=== PATIENT | female | born 1995 | race Caucasian/White ===

== ENCOUNTER 2018-07-29 11:32 | Emergency (ER) | payer OTHER, SELFPAY ==
[2018-07-29 11:37] VITALS: BP 114/75; PULSE 80; RESP 15; TEMP 36.8; O2SAT 99; BMI 30.3
--- NOTE | 2018-07-29 12:05 | ED.ABDPAIN ---
HPI - Abdominal Pain <ROMINA Carlos - Last Filed: 07/29/18 21:47> General Chief Complaint: Abdominal Pain Stated Complaint: 10wks and has constipation Time Seen by Provider: 07/29/18 12:05 Source: patient Mode of arrival: ambulatory Limitations: no limitations History of Present Illness HPI narrative: 23-year-old healthy female that is a nonsmoker here for complaint of constipation over the past week. She reports her last bowel movement was approximately 8 days ago. She states that she has pain into the anal rectal area as she is having hard time passing hard stool. She has been using a laxative prescribed to her by her primary care provider which has not been helping. She has also use glycerin suppositories. She denies any urinary symptoms. No fevers no chills. She denies any vaginal discharge or bleeding. she denies having abdominal pain over she does have discomfort secondary to bloating. She is 7 para 1. positive p.o. intake MD complaint: other Related Data Home Medications Medication Instructions Recorded Confirmed ondansetron 8 mg PO TID PRN 07/29/18 07/29/18 Previous Rx's Medication Instructions Recorded magnesium citrate 296 ml PO NOW #296 ml 07/29/18 mineral oil 118 ml MT NOW #135 ml 07/29/18 Review of Systems <ROMINA Carlos - Last Filed: 07/29/18 21:47> Constitutional Denies chills, Denies fever(s), Denies lethargy and Denies weakness Eyes Denies change in vision, Denies eye discharge, Denies irritation and Denies loss of vision ENT Ears, Nose, Mouth, and Throat: Denies change in voice, Denies neck pain and Denies sore throat Cardiovascular Denies chest pain, Denies irregular heart rhythm, Denies lightheadedness, Denies palpitations, Denies dyspnea, Denies dyspnea on exertion and Denies orthopnea Respiratory Denies cough, Denies dyspnea, Denies dyspnea on exertion and Denies wheezing Gastrointestinal Gastrointestinal: Reports constipation Genitourinary Denies hematuria, Denies flank pain, Denies urinary incontinence and Denies urinary urgency Musculoskeletal Denies neck pain Integumentary/Breasts Denies pruritus, Denies erythema, Denies rash and Denies wounds Neurologic Denies confusion, Denies loss of vision and Denies weakness Psychiatric Denies anxiety, Denies confusion, Denies depression, Denies homicidal ideation and Denies suicidal ideation Endocrine Denies palpitations Hematologic/Lymphatic Denies easy bruising Allergic/Immunologic Denies wheezing Exam <ROMINA Carlos - Last Filed: 07/29/18 21:47> Initial Vital Signs Initial Vital Signs: Vital Signs Temperature 98.3 F 07/29/18 11:37 Pulse Rate 80 07/29/18 11:37 Respiratory Rate 15 07/29/18 11:37 Blood Pressure 114/75 07/29/18 11:37 Pulse Oximetry 99 07/29/18 11:37 Const General: cooperative and well developed Nutritional Appearance: well nourished Orientation: alert, awake, oriented x3 and not confused HENMT Mouth: oral mucosae normal and moist mucous membranes Eyes Conjunctivae: conjunctivae normal Sclera: sclerae normal Pupils: PERRL EOM: EOM intact bilaterally Resp Effort & Inspection: normal respiratory effort, able to speak in complete sentences, no respiratory distress and no use of accessory muscles Auscultation: clear to auscultation bilaterally, no rales, no rhonchi and no wheezes Cardio Rate: regular rate Rhythm: regular rhythm Heart Sounds: no click, no gallops, no murmurs and no rubs GI Inspection: non-distended Palpation: soft, no hepatosplenomegaly, No guarding, No pulsatile mass and No tender Auscultation: normal bowel sounds Rectal Exam: visual inspection normal, normal sphincter tone and fecal impaction General: No CVA tenderness Skin General: no rashes or lesions noted, No jaundice and No petechiae Neuro General: alert, oriented x3, gait normal and no focal motor deficits Speech: speech normal <Wilfredo Albright DO - Last Filed: 08/02/18 07:12> Initial Vital Signs Initial Vital Signs: Vital Signs Temperature 98.3 F 07/29/18 11:37 Pulse Rate 80 07/29/18 11:37 Respiratory Rate 15 07/29/18 11:37 Blood Pressure 114/75 07/29/18 11:37 Pulse Oximetry 99 07/29/18 11:37 Course <ROMINA Carlos - Last Filed: 07/29/18 21:47> Vital Signs - 8 hr 07/29/18 14:20 Pulse Rate 84 Respiratory Rate 18 Blood Pressure 114/73 Pulse Oximetry 100 <Wilfredo Albright DO - Last Filed: 08/02/18 07:12> Vital Signs - 8 hr 07/29/18 14:20 Pulse Rate 84 Respiratory Rate 18 Blood Pressure 114/73 Pulse Oximetry 100 MDM - Abdominal Pain <ROMINA Carlos - Last Filed: 07/29/18 21:47> Lab Data Point of care testing: Urine Dip Bedside Urine Glucose Negative Bedside Urine Bilirubin - Negative Bedside Urine Ketone - Negative Urine Specific [place] 1.010 Bedside Urine Occult Blood - Negative Bedside Urine pH 7.0 Bedside Urine Protein - Negative Bedside Urine Urobilinogen - Negative Bedside Urine Nitrite - Negative Bedside Urine Leukocytes - Negative Esterase MDM Narrative Medical decision making narrative: Fecal impaction was appreciated on exam. Surgical lube enema was given and then fecal disimpaction was completed. she was able to have a small bowel movement after the fecal impaction. Patient would like to try a enema at home. She is prescribed a mineral oil enema. She is prescribed Mag citrate. She is encouraged to drink plenty of fluids. And plenty of fiber. Follow up with primary care provider in the next couple days for re-evaluation. For any worsening symptoms return to the emergency room. POC urine was negative for signs of urinary tract infection. <Wilfredo Albright DO - Last Filed: 08/02/18 07:12> Lab Data Point of care testing: Urine Dip Bedside Urine Glucose Negative Bedside Urine Bilirubin - Negative Bedside Urine Ketone - Negative Urine Specific [place] 1.010 Bedside Urine Occult Blood - Negative Bedside Urine pH 7.0 Bedside Urine Protein - Negative Bedside Urine Urobilinogen - Negative Bedside Urine Nitrite - Negative Bedside Urine Leukocytes - Negative Esterase Discharge Plan Departure Patient Disposition: Home Clinical Impression: Constipation Discharge Date/Time: 07/29/18 14:20 Interventions: ED Discharge Assessment Last Done: 07/29/18 14:20 Instructions: DI for Constipation Activity Restrictions/Additional Instructions: to help with the constipation you are prescribed a mineral oil enema along with magnesium citrate use as directed. Plenty of fluids. Plenty of fiber follow up with primary care provider in the next couple days for re-evaluation. For any worsening symptoms return to the emergency room. Prescriptions: New mineral oil enema 118 ml MT NOW Qty: 135 RF: 0 magnesium citrate solution 296 ml PO NOW Qty: 296 RF: 0 No Action ondansetron 8 mg tablet,disintegrating 8 mg PO TID PRN (Reason: Nausea) RF: 0 Referrals: [facility] [Provider Group] <Wilfredo Albright DO - Last Filed: 08/02/18 07:12> Cosign ED Attending Roderick Attestation: I was available for consultation during this patient's emergency department encounter
[2018-07-29 14:20] VITALS: BP 114/73; PULSE 84; RESP 18; O2SAT 100
== END 2018-07-29 14:20 | disposition home or self-care (01) ==
PROVIDERS: Emergency Provider Nurse Practitioner Family
DX: M54.5 Low back pain (principal)
CPT/HCPCS: 81003; 99283

== ENCOUNTER → 2020-03-03 07:56 | Outpatient (CLI) | payer OTHER, SELFPAY ==
--- NOTE | 2020-03-03 07:57 | DI.US.S_ITS ---
LIMITED ULTRASOUND OF RIGHT BREAST: 03/03/2020 CLINICAL: Palpable right breast lump. Baseline ultrasound. No prior exams were available for comparison. Real-time ultrasound of the right breast 12 o'clock region was performed. Dimas scale images of the real-time examination were reviewed. Patient last breast feed about 7 months ago. Reports no change in the palpable abnormality. No significant abnormalities were seen sonographically in the right breast in the region of the palpable abnormality. There is a ridge of fibroglandular tissue. IMPRESSION: NEGATIVE There is no sonographic evidence of malignancy in the region of palpable abnormality. Return to annual mammogram screening schedule is recommended. Patient was advised to monitor the area for significant change. This exam was interpreted at Station ID: [id number]. Electronically Signed By: Adonis Marie M.D. [facility] [place]/:03/03/2020 09:00:32 letter sent: Normal Exam Ultrasound BI-RADS: 1 Negative
== END ==
PROVIDERS: PCP Family Medicine
DX: N63.15 Unspecified lump in the right breast, overlapping quadrants (principal)
CPT/HCPCS: 76642

== ENCOUNTER 2020-10-27 13:00 | Emergency (ER) | payer OTHER, SELFPAY ==
[2020-10-27 13:00] VITALS: BP 143/68; PULSE 69; RESP 14; TEMP 36.3; O2SAT 100; BMI 32.5
[2020-10-27] MEDS: TET,DIPH,PERTUSS(ACELL),VAC/PF 0.5 ML SYRINGE IM (13:19)
[2020-10-27] MEDS: BACITRACIN OINT 0.9 GM PCKT 1 APPLIC TOP (13:20)
[2020-10-27] MEDS: LIDO 1%/SOD BICARB 8.4% (10ML) 10 ML SYRINGE INJ (13:20)
[2020-10-27] MEDS: ONDANSETRON 4 MG ODT SL (13:27)
--- NOTE | 2020-10-27 13:46 | ED_ITS ---
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 patient is unsure of last tetanus immunization. Right dominant hand. Patient reports intact sensation and is able to move her fingers. Related Data Allergies Allergy/AdvReac Type Severity Reaction Status Date / Time No Known Drug Allergies Allergy Verified 10/27/20 13:09 Review of Systems <ROMINA Salmeron - Last Filed: 10/27/20 14:14> Review of Systems Narrative: General: Denies fever, chills, fatigue, malaise, sweats. Respiratory: Denies dyspnea, cough, wheezing, hemoptysis, sputum. Cardiovascular: Denies chest pain, palpitations, orthopnea, edema. Gastrointestinal: Denies nausea, vomiting, abdominal pain, diarrhea, constipation, melena. Musculoskeletal: Denies weakness, joint pain or bony pain. Skin: See HPI Patient History <ROMINA Salmeron - Last Filed: 10/27/20 14:14> Social History Smoking Status: Former smoker Smoking Status: Former smoker alcohol intake frequency: holidays/special occasions only Substance Use Type: does not use Exam <ROMINA Salmeron - Last Filed: 10/27/20 14:14> Narrative Exam Narrative: General appearance: well developed, well nourished, in no acute distress. Head: normocephalic, atraumatic, no scalp lesions, non-tender. ENT: Hearing grossly intact. Airway patent. Neck/Thyroid: neck supple, full range of motion, no visible masses or meningeal signs. No JVD, non-tender without lymphadenopathy. Skin: 2 cm transverse linear laceration on left long finger in the middle of finger pad. Warm and dry and appropriate color for ethnicity. Heart: no clubbing, no cyanosis, no edema. Lungs: Breathing even and unlabored. No stridor. No accessory muscles used. Able to speak in full sentences. Chest: normal shape and expansion. Abdomen: non-obese, non-distended. Neurologic: alert and oriented. 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 Psych: good eye contact, normal affect. Initial Vital Signs Initial Vital Signs: Vital Signs Temperature 97.4 F L 10/27/20 13:00 Pulse Rate 69 10/27/20 13:00 Respiratory Rate 14 10/27/20 13:00 Blood Pressure 143/68 H 10/27/20 13:00 Pulse Oximetry 100 10/27/20 13:00 <Irais Garcia DO - Last Filed: 10/27/20 17:39> Initial Vital Signs Initial Vital Signs: Vital Signs Temperature 97.4 F L 10/27/20 13:00 Pulse Rate 69 10/27/20 13:00 Respiratory Rate 14 10/27/20 13:00 Blood Pressure 143/68 H 10/27/20 13:00 Pulse Oximetry 100 10/27/20 13:00 Procedures <ROMINA Salmeron - Last Filed: 10/27/20 14:14> Laceration Repair Laceration 1: Site: hand (long finger distal finger pad transverse) Side (If applicable): left Size (cm): 2 Description: linear Depth: simple, single layer Local Anesthetic: lidocaine 1% and with bicarb Amount of anesthesia used (mL): 2 Pre-repair: wound explored and irrigated extensively Skin layer closed with: nylon Size (cm): 4-0 Number of sutures: 3 Technique: simple, interrupted Orthopedic Splinting/Casting Injury #1: Side: left Upper Extremity Injury Location: finger Upper Extremity Immobilizer: aluminum form splint Additional Comments: sending a splint home with instruction on how to use. Scores <ROMINA Salmeron - Last Filed: 10/27/20 14:14> GCS [place] coma scale eye opening: Spontaneous Le[place] coma scale verbal response: Orientated [place] coma scale motor response: Obey commands [place] coma scale total score: 15 Course <ROMINA Salmeron - Last Filed: 10/27/20 14:14> Orders Ordered: Discontinued Medications Bacitracin (Bacitracin Oint 0.9 Gm Pckt) 1 applic TOP NOW ONE Stop: 10/27/20 13:14 Last Admin: 10/27/20 13:20 Dose: 1 applic Documented by: AURA Diphtheria/Tetanus/Acell Pertussis (Tet,Diph,Pertuss(Acell),Vac/Pf 0.5 Ml Syringe) 0.5 ml IM .ONCE ONE Stop: 10/27/20 13:14 Last Admin: 10/27/20 13:19 Dose: 0.5 ml Documented by: AURA Lidocaine/Sodium Bicarbonate (Lido 1%/Sod Bicarb 8.4% (10ml) 10 Ml Syringe) 10 ml INJ NOW ONE Stop: 10/27/20 13:14 Last Admin: 10/27/20 13:20 Dose: 10 ml Documented by: AURA Ondansetron HCl (Ondansetron 4 Mg Odt) 4 mg SL NOW ONE Stop: 10/27/20 13:25 Last Admin: 10/27/20 13:27 Dose: 4 mg Documented by: AURA Vital Signs Vital signs: Vital Signs - 8 hr 10/27/20 13:00 10/27/20 14:11 Temperature 97.4 F L Pulse Rate 69 74 Respiratory Rate 14 16 Blood Pressure 143/68 H 143/68 H Pulse Oximetry 100 98 <Irais Garcia DO - Last Filed: 10/27/20 17:39> Orders Ordered: Discontinued Medications Bacitracin (Bacitracin Oint 0.9 Gm Pckt) 1 applic TOP NOW ONE Stop: 10/27/20 13:14 Last Admin: 10/27/20 13:20 Dose: 1 applic Documented by: AURA Diphtheria/Tetanus/Acell Pertussis (Tet,Diph,Pertuss(Acell),Vac/Pf 0.5 Ml Syringe) 0.5 ml IM .ONCE ONE Stop: 10/27/20 13:14 Last Admin: 10/27/20 13:19 Dose: 0.5 ml Documented by: AURA Lidocaine/Sodium Bicarbonate (Lido 1%/Sod Bicarb 8.4% (10ml) 10 Ml Syringe) 10 ml INJ NOW ONE Stop: 10/27/20 13:14 Last Admin: 10/27/20 13:20 Dose: 10 ml Documented by: AURA Ondansetron HCl (Ondansetron 4 Mg Odt) 4 mg SL NOW ONE Stop: 10/27/20 13:25 Last Admin: 10/27/20 13:27 Dose: 4 mg Documented by: AURA Vital Signs Vital signs: Vital Signs - 8 hr 10/27/20 13:00 10/27/20 14:11 Temperature 97.4 F L Pulse Rate 69 74 Respiratory Rate 14 16 Blood Pressure 143/68 H 143/68 H Pulse Oximetry 100 98 [facility] - Wound/Laceration <Caden EliseoROMINA - Last Filed: 10/27/20 14:14> Differential Diagnosis Differential diagnosis: Likely laceration Medical Records Attestation: I reviewed the patient's medical records. MDM Narrative Medical decision making narrative: This is a 25 year female who presents to ED with left non dominant hand long finger pad transverse 2 cm laceration with active bleeding went direct pressure was removed. Tdap updated today. Unable to visualize foreign body. Wound irrigated well with normal saline and Hibiclens after digital block done. Please see procedure note. We discussed wound care at home, wound recheck in 2-3 days, and suture removal in 7-10 days with return precautions. Aluminum finger splint provided to patient to use after initial dressing removal to protect sutures. She became pale and nauseated after visualizing wound and bleeding which improved shortly after. Patient medicated with Zofran ODT. Patient verbalized understanding in agreement with the treatment plan. Discharge Plan Departure Patient Disposition: Home Clinical Impression: Finger laceration Qualifiers: Encounter type: initial encounter Finger: middle finger Damage to nail status: without damage Foreign body presence: without foreign body Laterality: left Qualified Code(s): S61.213A - Laceration without foreign body of left middle finger without damage to nail, initial encounter Instructions: DI for Laceration Repair -- Finger Activity Restrictions/Additional Instructions: You have been diagnosed with [left non dominant hand distal finger pad laceration repaired with 3 sutures.]. What to do: *Take your medications as directed. You can take [id number] Tylenol and or Motrin as needed for discomfort. Please do not get your wound soaked in the water until suture removal. Keep your dressing intact for next 24 hrs. After then, you could remove your dressing, wash with soap and water. Pat dry with clean paper towel and dress it with antibiotic ointment. You can change dressing as needed and daily. Please monitor for signs and symptoms for infection such as increasing redness, swelling, warmth, pain, fever, purulent discharge. If this occurs, please return to ED or follow up with your primary care physician since your wound may be gotten infected. Please follow up with your primary care provider in 2-3 days for recheck wound. Your suture should be removed [ 7-10 ] days. This can be done by your primary provider, walk-in clinic or here in ED. Please keep your wound clean, dry and intact all times. You can use finger splint to protect sutures after initial dressing removal. *Follow up with your primary care provider in 2-3 days, call for an appointment. Let them know you were seen in the ED and that we asked you to be seen in follow up. *Return to ED if you have any new, worsening, or concerning symptoms, such as [chest pain, breathing difficulty, unable to tolerate fluids, signs and symptoms for infection as above, or any acute concerns]. Referrals: Patricia Luis DO [Primary Care Provider] - <Irais Garcia DO - Last Filed: 10/27/20 17:39> Cosign ED Attending Mosesature Attestation: I was immediately available in the department for consultation. Documentation has been reviewed. I agree with assessment and plan.
[2020-10-27 14:11] VITALS: BP 143/68; PULSE 74; RESP 16; O2SAT 98
== END 2020-10-27 14:13 | disposition home or self-care (01) ==
PROVIDERS: Emergency Provider Nurse Practitioner Family; PCP Family Medicine
DX: S61.213A Laceration without foreign body of left middle finger without damage to nail, initial encounter (principal); W25.XXXA Contact with sharp glass, initial encounter; Z23 Encounter for immunization
CPT/HCPCS: 12001; 90471; 99283; 90715

== ENCOUNTER 2020-10-27 20:21 | Emergency (ER) | payer OTHER, SELFPAY ==
--- NOTE | 2020-10-27 20:25 | ED.UPPEXIN ---
HPI - Extremity Injury (Upper) General Chief Complaint: Extremity Injury, Upper Stated Complaint: SEVERE LEFT HAND MIDDLE FINGER PAIN WAS HERE ALREA Time Seen by Provider: 10/27/20 20:22 Source: patient Mode of arrival: Ambulatory Limitations: no limitations History of Present Illness HPI narrative: 25-year-old female nonsmoker presents for the 2nd time today after injuring her left middle finger. She lacerated on a broken glass and was seen and evaluated earlier and had local injected lidocaine, 3 sutures placed and wrapped with Coban.. She was doing well until about an hour ago when she started having increasing deep, throbbing pain of her finger. She denies any new injury. She denies any obvious numbness, tingling or weakness. MD complaint: injury to: left Onset (ago): minute(s) Other Extremity Injury: Left: fingers Other injuries: none Handedness: right Place: home Severity: moderate Relieving factors: none Exacerbating factors: movement of extremity Context: laceration Associated symptoms: denies other symptoms Treatments prior to arrival: bandage and other Related Data Allergies Allergy/AdvReac Type Severity Reaction Status Date / Time No Known Drug Allergies Allergy Verified 10/27/20 20:35 Review of Systems Review of Systems ROS Unobtainable: Unobtainable due to mental status/LOC Constitutional Constitutional: Denies fever(s) Cardiovascular Cardiovascular: Denies chest pain, Denies syncope and Denies dyspnea Respiratory Respiratory: Denies dyspnea Gastrointestinal Gastrointestinal: Denies nausea and Denies vomiting Musculoskeletal Comments: Severe finger pain Integumentary/Breasts Skin/Breast: Reports wounds Neurologic Neurologic: Denies syncope Patient History Social History Smoking Status: Former smoker Smoking Status: Former smoker alcohol intake frequency: holidays/special occasions only Substance Use Type: does not use Exam Narrative Exam Narrative: GEN: AOx3 and in mild distress, tearful, gripping her bandaged middle finger crying of pain EYES: Pupils are equal, round, and reactive to light and accommodation. Extraoccular muscles are intact bilaterally. There is no subconjunctival hemorrhage or exudate. CHEST: Lungs are clear to auscultation bilaterally and free of wheezes, rales, or rhonchi. Heart rate is regular rhythm, there are no murmurs, clicks, rubs, or gallops. There is no chest wall tenderness. ABD: Abdomen is soft and nontender. There is no guarding or rebound. Bowel sounds are normal in all 4 quadrants. There is no mass or organomegaly. EXT: Full painless ROM of all extremities with no loss of sensation or strength. Coban removed and [address], no bleeding, sensation intact, significant pain present. SKIN: Warm, pink, and dry. No erythema or rash Initial Vital Signs Initial Vital Signs: Vital Signs Temperature 98.5 F 10/27/20 20:30 Pulse Rate 124 H 10/27/20 20:30 Respiratory Rate 17 10/27/20 20:30 Blood Pressure 155/117 H 10/27/20 20:30 Pulse Oximetry 94 10/27/20 20:30 Procedures Laceration Repair Laceration 1: Site: hand Side (If applicable): left Size (cm): 2 Description: linear Depth: simple, single layer Pre-repair: wound explored and deep structures intact Skin layer closed with: nylon Size (cm): 5-0 Number of sutures: 3 Nerve Block Nerve Block 1: Time out performed: Yes Local Anesthetic: bupivacaine 0.25% Amount of anesthesia used (mL): 4 Side: left Nerve Blocks: digital Procedure Successful: Yes Patient Tolerated Procedure: Well Complications: inadequate anesthesia (pain improved, but could feel passage of needle and even tying knots) Course Course Course Narrative: There was no improvement in the pain after the dressing was removed. I then removed all 3 sutures in the patient felt significant improvement in her pain but then started bleeding again. We discussed options and I suggested that she likely had an unfortunate combination of factors contributing to her pain including the initial wound, placement of suture, and compressive dressing. We elected to perform digital block and replace the sutures. Orders Ordered: Discontinued Medications Bupivacaine HCl (Bupivacaine 0.5% (Pf) Vial) 5 ml SUBCUT NOW ONE Stop: 10/27/20 21:05 Last Admin: 10/27/20 21:28 Dose: 5 ml Documented by: SCANAPO Vital Signs Vital signs: Vital Signs - 8 hr 10/27/20 20:30 Temperature 98.5 F Pulse Rate 124 H Respiratory Rate 17 Blood Pressure 155/117 H Pulse Oximetry 94 Discharge Plan Departure Patient Disposition: Home Clinical Impression: Laceration of finger of left hand Qualifiers: Encounter type: initial encounter Finger: middle finger Damage to nail status: without damage Foreign body presence: without foreign body Qualified Code(s): S61.213A - Laceration without foreign body of left middle finger without damage to nail, initial encounter Instructions: DI for Hand Pain Activity Restrictions/Additional Instructions: Please keep the wound clean and dry to the best of your ability. Please monitor for signs of infection such as redness to the skin or increasing pain. Have the sutures removed by your doctor in about 7-10 days. If you are unable to get into your doctor, we would be happy to remove the sutures in that same timeframe. Referrals: Patricia Luis DO [Primary Care Provider] -
[2020-10-27 20:30] VITALS: BP 155/117; PULSE 124; RESP 17; TEMP 36.9; O2SAT 94; BMI 32.5
[2020-10-27] MEDS: BUPIVACAINE 0.5% (PF) VIAL 5 ML SUBCUT (21:28)
--- NOTE | 2020-10-27 22:01 | PC.NURSE ---
pt c/o severe pain to tip of finger. pt had sutures placed earlier today to area. pt tearful, squeezing finger, putting pressure on finger states feels better.
== END 2020-10-27 22:02 | disposition home or self-care (01) ==
PROVIDERS: Emergency Provider Emergency Medicine; PCP Family Medicine
DX: S61.213A Laceration without foreign body of left middle finger without damage to nail, initial encounter (principal); W25.XXXA Contact with sharp glass, initial encounter
CPT/HCPCS: 12001; 64450; 99282; 99283

== ENCOUNTER 2020-11-06 20:06 | Emergency (ER) | payer OTHER, SELFPAY ==
[2020-11-06 20:14] VITALS: BP 123/81; PULSE 98; RESP 16; TEMP 36.1; O2SAT 98; BMI 32.5
== END 2020-11-06 20:27 | disposition home or self-care (01) ==
PROVIDERS: Emergency Provider Emergency Medicine; PCP Family Medicine
DX: Z48.02 Encounter for removal of sutures (principal)
CPT/HCPCS: 99281

== ENCOUNTER 2020-12-16 14:07 | Emergency (ER) | payer OTHER, SELFPAY ==
[2020-12-16 14:26] VITALS: BP 117/81; PULSE 88; RESP 16; TEMP 36.1; O2SAT 97; BMI 33.6
[2020-12-16 14:38] LABS: Bacteria Urine None Seen; RBC Urine None Seen (0-5/HPF)
[2020-12-16 14:48] LABS: Bilirubin Urine UA NEGATIVE (NEGATIVE); Glucose Urine UA NEGATIVE (Negative); Ketones Urine UA NEGATIVE (NEGATIVE); Leukocyte Esterase Urine UA 2+ (NEGATIVE); Nitrite Urine UA NEGATIVE (Negative); Occult Blood Urine UA TRACE-INTACT (Negative); Protein Urine UA NEGATIVE (Negative); Specific Gravity Urine UA <=1.005 (1.000-1.035); Urobilinogen Urine UA 0.2 E.U./dL (0.2)
[2020-12-16 14:53] LABS: Color Urine UA Straw
[2020-12-16 14:54] LABS: Appearance Urine UA Slightly Cloudy
[2020-12-16 14:58] LABS: Culture Indicated Urine Specimen Cultured; WBC Urine 1-5/HPF (0-5/HPF)
[2020-12-16 15:30] LABS: Pregnancy Test Urine Negative (Negative)
--- NOTE | 2020-12-16 16:44 | ED.FEMALEGU ---
HPI - Female Genitourinary General Chief complaint: Urogenital-Female Stated complaint: POSS UTI Time Seen by Provider: 12/16/20 14:48 Source: patient Mode of arrival: Ambulatory Limitations: no limitations History of Present Illness HPI Narrative: Twelve 5-year-old female with dysuria, sense of urgency and incomplete emptying. No fevers. Suprapubic discomfort but no other abdominal pain, no flank pain. No nausea or vomiting. No issues with bowel movements. No vaginal bleeding or discharge. Patient denies other symptoms. No past medical history. No prior surgeries. Denies allergies to medications. Related Data Previous Rx's Medication Instructions Recorded cephalexin 500 mg PO BID 5 Days #10 cap 12/16/20 phenazopyridine [Pyridium] 100 mg PO TID PRN #6 tab 12/16/20 Allergies Allergy/AdvReac Type Severity Reaction Status Date / Time No Known Drug Allergies Allergy Verified 11/06/20 20:15 Review of Systems Review of Systems ROS Unobtainable: All systems reviewed & are unremarkable except as noted in HPI and below Patient History alcohol intake frequency: holidays/special occasions only Substance Use Type: does not use Exam Narrative Exam Narrative: GENERAL: Alert and oriented x three, well-nourished female in mild distress. HEENT: Head normocephalic, atraumatic, EOMI, pupils reactive, face symmetric, moist mucous membranes NECK: Supple, full range of motion CARDIOVASCULAR: Regular rate and rhythm without murmurs, rubs or gallops. RESPIRATORY: Breath sounds equal bilaterally, no wheezes rales or rhonchi. ABDOMEN: Soft, nontender. Normoactive bowel sounds all 4 quadrants. No guarding or rebound, rigidity, no mass : No CVA tenderness EXTREMITIES: Normal range of motion, no clubbing or edema. Neurovascularly intact NEUROLOGICAL: Cranial nerves II through XII grossly intact. Moving all extremities SKIN: Warm, dry, no petechiae, no rashes or lesions. Initial Vital Signs Initial Vital Signs: Vital Signs Temperature 97 F L 12/16/20 14:26 Pulse Rate 88 12/16/20 14:26 Respiratory Rate 16 12/16/20 14:26 Blood Pressure 117/81 12/16/20 14:26 Pulse Oximetry 97 12/16/20 14:26 Course Orders Ordered: ED Orders 12/16/20 14:31 Test Urine Stat Urinalysis and Microscopic Stat Urine Culture Stat Vital Signs Vital signs: Vital Signs - 8 hr 12/16/20 14:26 12/16/20 17:19 Temperature 97 F L Pulse Rate 88 74 Respiratory Rate 16 16 Blood Pressure 117/81 116/75 Pulse Oximetry 97 97 MDM - Female Genitourinary Lab Data Attestation: I reviewed the patient's lab results. Labs: Lab Results 12/16/20 12/16/20 Range/Units 14:31 14:31 Urine Color Straw Urine Appearance Slightly cloudy Urine pH 6.0 (4.5-8.0) Ur Specific [place] <=1.005 (1.000-1.035) Urine Protein Negative (Negative) Urine Glucose (UA) Negative (Negative) g/dL Urine Ketones Negative (NEGATIVE) Urine Occult Blood Trace-intact (Negative) Urine Nitrate Negative (Negative) Urine Bilirubin Negative (NEGATIVE) Urine Urobilinogen 0.2 (0.2) E.U./dL Ur Leukocyte Esterase 2+ H (NEGATIVE) Urine RBC None seen (0-5/HPF) Urine WBC 1-5/hpf (0-5/HPF) Urine Bacteria None seen (None) Ur Culture Indicated? Specimen cultured Urine Test Negative (Negative) MDM Narrative Medical decision making narrative: Patient has leukocyte esterase with clinically UTI symptoms. Patient states she would appreciate peridium, oral antibiotics and will start these. Return precautions and symptoms were discussed for return all questions were answered. Discharge Plan Departure Patient Disposition: Home Clinical Impression: UTI (urinary tract infection) Instructions: DI for Urinary Tract Infection (UTI) Activity Restrictions/Additional Instructions: Follow-up with your physician if you are not having improvement over the next 72 hours. Take antibiotics until completely gone. Take for radium 1 tablet every 8 hours as needed for dysuria or bladder spasm. This medication will make your urine bright orange. Return to the ER for fevers, new or worsening abdominal, flank pain, persistent vomiting, lightheadedness or passing out, inability urinate or other new or concerning symptoms. Prescriptions: New cephalexin 500 mg capsule 500 mg PO BID 5 Days Qty: 10 RF: 0 phenazopyridine [Pyridium] 100 mg tablet 100 mg PO TID PRN (Reason: pain) Qty: 6 RF: 0 Referrals: Patricia Luis DO [Primary Care Provider] -
[2020-12-16 17:19] VITALS: BP 116/75; PULSE 74; RESP 16; O2SAT 97
== END 2020-12-16 17:19 | disposition home or self-care (01) ==
PROVIDERS: Emergency Provider Emergency Medicine; PCP Family Medicine
DX: N39.0 Urinary tract infection, site not specified (principal)
CPT/HCPCS: 81001; 81025; 87077; 87086; 87147; 99281; 99283

== ENCOUNTER → 2021-01-18 11:52 | Outpatient (CLI) | payer OTHER, SELFPAY | PROVIDERS: PCP Family Medicine; Visit Provider Student in an Organized Health Care Education/Training Program | DX: R35.0 Frequency of micturition (principal) | CPT/HCPCS: 87077; 87086; 87147 ==

== ENCOUNTER 2021-07-04 18:23 | Emergency (ER) | payer OTHER, SELFPAY ==
[2021-07-04 18:27] VITALS: BP 118/66; PULSE 67; RESP 16; TEMP 36.1; O2SAT 99
[2021-07-04 19:05] LABS: Add Manual Diff / Slide Review NO; Basophils Absolute Auto 0 /uL (0-100); Basophils Percent Auto 0.7 % (0-2); Eosinophils Absolute Auto 100 /uL (0-450); Eosinophils Percent Auto 1.5 % (2-4); Hematocrit 38.9 % (36-46); Lymphocytes Absolute Auto 1800 /uL (1100-4500); Lymphocytes Percent Auto 27.4 % (25-40); Mean Corpuscular HGB Conc 33.4 % (30-36); Monocytes Absolute Auto 400 /uL (0-900); Monocytes Percent Auto 6.3 % (3-14); Neutrophils Absolute Auto 4200 /uL (1500-7000); Neutrophils Percent Auto 64.1 % (50-75); Platelet Count 212 X10^3/uL (150-400); Red Blood Cell Count 4.32 X10^6/uL (4.0-5.2); Red Cell Distribution Width 13.3 % (11.6-14.8); White Blood Cell Count 6.6 X10^3/uL (4.5-11.0)
[2021-07-04 19:17] LABS: Alanine Aminotransferase 17 IU/L (<35); Albumin 4.3 g/dL (3.5-5.0); Albumin Globulin Ratio 1.7 (1.0-2.8); Alkaline Phosphatase 67 U/L (38-126); Aspartate Aminotransferase 20 IU/L (14-36); BUN Creatinine Ratio 18.8 (6-22); Bilirubin Total 0.2 mg/dL (0.2-1.3); Blood Urea Nitrogen 12 mg/dL (7-17); Calcium 9.3 mg/dL (8.4-10.2); Carbon Dioxide 29 mmol/L (22-32); Chloride 103 mmol/L (98-107); Estimated Glomerular Filt Rate > 60.0 mL/min (>60); Globulin 2.6 g/dL (1.7-4.1); Glucose 114 mg/dL (70-100); HEMOLYSIS < 15 (0-50); Lipase 139 U/L (23-300); Sodium 140 mmol/L (137-145); Total Protein 6.9 g/dL (6.3-8.2)
--- NOTE | 2021-07-04 19:42 | ED_ITS ---
HPI - Abdominal Pain General Chief Complaint: Abdominal Pain Stated Complaint: kidney pain-LT side,headache nausea,fatigue,chills Time Seen by Provider: 07/04/21 19:04 Source: patient Mode of arrival: Ambulatory Limitations: no limitations History of Present Illness HPI narrative: This is a 25-year-old female with left sided flank pain. Patient has had intermittent symptoms that will last 10-15 mins and then resolve. Patient states it is mild to moderate and she would normally not worry about it but she has had chills and felt nauseated lately. No fevers. No vomiting. She had a few episodes of diarrhea 2 days, no melena or hematochezia. Patient denies any dysuria, urgency or frequency. She states the pain does not radiate front. She has not had any vaginal bleeding or discharge. She is sexually ac tive but is not suspicious for infection. She denies any chest pain or shortness of breath no cold cough or congestion. She denies any medical issues. No prior surgeries. She smokes some days, occasional alcohol. No illicit. She has had UTIs in the past but states this feels different. Related Data Allergies Allergy/AdvReac Type Severity Reaction Status Date / Time No Known Drug Allergies Allergy Verified 01/18/21 11:52 Review of Systems Review of Systems ROS Unobtainable: All systems reviewed & are unremarkable except as noted in HPI and below Patient History Social History Smoking Status: Current some day smoker Smoking Status: Current some day smoker tobacco type: vaping alcohol intake frequency: holidays/special occasions only Substance Use Type: does not use Exam Narrative Exam Narrative: GENERAL: Alert and oriented x three, female in mild distress. HEENT: Head normocephalic, atraumatic, EOMI, pupils reactive, face symmetric, moist mucous membranes NECK: Supple, full range of motion CARDIOVASCULAR: Regular rate and rhythm without murmurs, rubs or gallops. RESPIRATORY: Breath sounds equal bilaterally, no wheezes rales or rhonchi. ABDOMEN: Soft, nontender. Normoactive bowel sounds all 4 quadrants. No guarding or rebound, rigidity, no mass : No CVA tenderness. Female: external vaginal exam is normal, no vaginal bleeding, scant thin white discharge, no cervical motion tenderness, normal speculum exam, no adnexal tenderness/mass. Bimanual exam is normal, no enlarged or tender uterus. Non-gravid. Exam chaperoned by SYEDA Merino. EXTREMITIES: Normal range of motion, no clubbing or edema. Neurovascularly intact NEUROLOGICAL: Cranial nerves II through XII grossly intact. Moving all extremities SKIN: Warm, dry, no petechiae, no rashes or lesions. Initial Vital Signs Initial Vital Signs: Vital Signs Temperature 97.0 F L 07/04/21 18:27 Pulse Rate 67 07/04/21 18:27 Respiratory Rate 16 07/04/21 18:27 Blood Pressure 118/66 07/04/21 18:27 Pulse Oximetry 99 07/04/21 18:27 Course Orders Ordered: ED Orders 07/04/21 18:35 Complete Blood Count AUTO DIFF Stat Comprehensive Metabolic Panel Stat Lipase Stat 07/04/21 20:11 Chlamydia/Gonoc/Myco Genital Stat Wet Prep Tric BV Su Stat Vital Signs Vital signs: Vital Signs - 8 hr 07/04/21 18:27 07/04/21 20:21 Temperature 97.0 F L Pulse Rate 67 78 Respiratory Rate 16 Blood Pressure 118/66 118/62 Pulse Oximetry 99 98 MDM - Abdominal Pain Lab Data Result diagrams: 07/04/21 18:35 07/04/21 18:35 Labs: Lab Results 07/04/21 07/04/21 Range/Units 18:35 18:35 WBC 6.6 (4.5-11.0) X10^3/uL RBC 4.32 (4.0-5.2) X10^6/uL Hgb 13.0 (12.0-16.0) g/dL Hct 38.9 (36-46) % MCV 90.0 (80-100) fL MCH 30.0 (26-34) PG MCHC 33.4 (30-36) % RDW 13.3 (11.6-14.8) % Plt Count 212 (150-400) X10^3/uL Neut % (Auto) 64.1 (50-75) % Lymph % (Auto) 27.4 (25-40) % [place] % (Auto) 6.3 (3-14) % Eos % (Auto) 1.5 L (2-4) % Baso % (Auto) 0.7 (0-2) % Neut # (Auto) 4200 (9392-8479) /uL Lymph # (Auto) 1800 (0846-7666) /uL [place] # (Auto) 400 (0-900) /uL Eos # (Auto) 100 (0-450) /uL Baso # (Auto) 0 (0-100) /uL Sodium 140 (137-145) mmol/L Potassium 4.0 (3.4-5.1) mmol/L Chloride 103 (98-107) mmol/L Carbon Dioxide 29 (22-32) mmol/L BUN 12 (7-17) mg/dL Creatinine 0.64 (0.52-1.04) mg/dL Estimated GFR > 60.0 (>60) mL/min BUN/Creatinine Ratio 18.8 (6-22) Glucose 114 H (70-100) mg/dL Calcium 9.3 (8.4-10.2) mg/dL Total Bilirubin 0.2 (0.2-1.3) mg/dL AST 20 (14-36) IU/L ALT 17 (<35) IU/L Alkaline Phosphatase 67 (38-126) U/L Total Protein 6.9 (6.3-8.2) g/dL Albumin 4.3 (3.5-5.0) g/dL Globulin 2.6 (1.7-4.1) g/dL Albumin/Globulin Ratio 1.7 (1.0-2.8) Lipase 139 (23-300) U/L Point of care testing: Point of Care Testing Test Results Negative Urine Dip Bedside Urine Glucose Negative Bedside Urine Bilirubin - Negative Bedside Urine Ketone - Negative Urine Specific [place] 1.010 Bedside Urine Occult Blood - Negative Bedside Urine pH 7.0 Bedside Urine Protein - Negative Bedside Urine Urobilinogen - Negative Bedside Urine Nitrite - Negative Bedside Urine Leukocytes - Negative Esterase MDM Narrative Medical decision making narrative: 25-year-old female with left flank pain, some nausea fatigue and chills recently. Patient states symptoms are intermittent and mild her left flank but with her other constellation of symptoms thought she should be evaluated. She has not been taking anything for pain itself resolved typically in 10-15 minutes. She does later note she has a history of PCOS, but symptoms seem very low risk for ovarian torsion. On exam she is nontender with a reassuring exam and on exam no acute findings other than some very mild discharge which is likely physiologic, negative and urine. Discussed with patient will check a GC which is pending and wet mount which was negative. At this time plan for return precautions and if patient is having worsening symptoms to be re-evaluated and likely have additional imaging. Discharge Plan Departure Patient Disposition: Home Clinical Impression: Left flank pain Activity Restrictions/Additional Instructions: Your labs today are reassuring. Your pelvic exam did not show any obvious infection but a GC/chlamydia culture was sent as well as a wet mount. You may take ibuprofen and/or Tylenol as needed for pain. Please return for fevers, new or worsening abdominal, back or flank pain, lightheadedness or passing out, persistent vomiting, black or bloody stools or other new or concerning symptoms. Referrals: Patricia Luis DO [Primary Care Provider] -
[2021-07-04 20:21] VITALS: BP 118/62; PULSE 78; O2SAT 98
== END 2021-07-04 20:33 | disposition home or self-care (01) ==
PROVIDERS: Emergency Provider Emergency Medicine; PCP Family Medicine
DX: R10.9 Unspecified abdominal pain (principal); R11.0 Nausea; R19.7 Diarrhea, unspecified
CPT/HCPCS: 36415; 80053; 81003; 81025; 83690; 85025; 87210; 87491; 87563; 87591; 99283; 99284

== ENCOUNTER 2021-10-01 16:13 | Emergency (ER) | payer OTHER, SELFPAY ==
[2021-10-01 16:15] VITALS: BP 123/65; PULSE 57; RESP 18; TEMP 36.4; O2SAT 98
--- NOTE | 2021-10-01 16:19 | DI.RAD.S_ITS ---
PROCEDURE: XR FINGER RT MIN 2V INDICATIONS: crush injury TECHNIQUE: AP hand, 2 views of the 1st finger(s) acquired. COMPARISON: None. FINDINGS: Bones: No fractures or dislocations. No suspicious bony lesions. Soft tissues: No suspicious soft tissue calcifications. IMPRESSION: No visualized acute fracture or dislocation. However, if clinical concern and/or pain persist, short interval imaging followup in 7-10 days is recommended, as occult injury cannot be definitively excluded. Dictated by: Sarah Rodríguez M.D. on 10/01/2021 at 16:32 Approved by: Sarah Rodríguez M.D. on 10/01/2021 at 16:32
--- NOTE | 2021-10-01 18:32 | ED.GENADULT ---
HPI - General Adult General Chief complaint: Extremity Injury, Upper Stated complaint: Smashed Rt Thumb in Car Door Time Seen by Provider: 10/01/21 18:28 Source: patient Mode of arrival: Ambulatory History of Present Illness HPI narrative: 26-year-old female here for evaluation of a right thumb injury. She states that just prior to arrival here in the emergency department she cut her right thumb closed today car door. No other injuries from the event. Has not tried anything for the symptoms prior to arrival. Related Data Allergies Allergy/AdvReac Type Severity Reaction Status Date / Time No Known Drug Allergies Allergy Verified 01/18/21 11:52 Review of Systems Musculoskeletal Musculoskeletal: Reports system reviewed and no additional complaints, except as documented Integumentary/Breasts Skin/Breast: Reports system reviewed and no additional complaints, except as documented and Reports as per HPI Neurologic Neurologic: Reports system reviewed and no additional complaints, except as documented Hematologic/Lymphatic On Anticoagulants: No Patient History Medical History Healthy adult Social History Smoking Status: Current some day smoker Smoking Status: Current some day smoker tobacco type: vaping alcohol intake frequency: holidays/special occasions only Substance Use Type: does not use Exam Initial Vital Signs Initial Vital Signs: Vital Signs Temperature 97.5 F L 10/01/21 16:15 Pulse Rate 57 L 10/01/21 16:15 Respiratory Rate 18 10/01/21 16:15 Blood Pressure 123/65 10/01/21 16:15 Pulse Oximetry 98 10/01/21 16:15 HENMT Head: normal to inspection and normocephalic Cardio Pulses: radial pulses present on the right Skin Other: Contusions located on the right thumb from the IP joint distal. Patient does have a subungual hematoma however the extent of this is limited because of the gel nail Tamazight that the patient has. There are no breaks in the skin. Neuro Sensory Exam: no sensory deficits noted Extrem Other: Discomfort to palpation and movement of the right thumb. Course Orders Ordered: ED Orders 10/01/21 16:19 XR finger RT min 2V Stat Vital Signs Vital signs: Vital Signs - 8 hr 10/01/21 16:15 Temperature 97.5 F L Pulse Rate 57 L Respiratory Rate 18 Blood Pressure 123/65 Pulse Oximetry 98 Medical Decision Making Imaging Data Extremity x-ray #1: Radiologist's Impression: [address] [address] XRay Report Signed Patient: Brandi Crawford MR#: [id number] : 1995 Acct:[id number] Age/Sex: 26 / F Date of Service: 10/01/21 Loc: ED Accession Number: [id number] ?? Procedure: XR finger RT min 2V Ordering Provider: Donna Sinha D.O. PROCEDURE:? XR FINGER RT MIN 2V ? INDICATIONS:? crush injury ? TECHNIQUE:? AP hand, 2 views of the 1st finger(s) acquired.? ? COMPARISON:? None. ? FINDINGS:? ? Bones:? No fractures or dislocations.? No suspicious bony lesions.? ? Soft tissues:? No suspicious soft tissue calcifications.? ? IMPRESSION:? No visualized acute fracture or dislocation. However, if clinical concern and/or pain persist, short interval imaging followup in 7-10 days is recommended, as occult injury cannot be definitively excluded. ? ? Dictated by: Sarah Rodríguez M.D. on 10/01/2021 at 16:32 ? ? Approved by: Sarah Rodríguez M.D. on 10/01/2021 at 16:32?? MDM Narrative Medical decision making narrative: No fractures noted on the x-rays. Does have a subungual hematoma on the right and I did discuss the possibility of doing a trephination to help with this over the patient declined. She is neurovascularly intact. We did discuss that she could potentially lose her right thumbnail because of this injury. She expressed understanding of this. She was given return precautions and care instructions. She expressed understanding and agreement. Discharge Plan Departure Patient Disposition: Home Clinical Impression: Subungual hematoma of finger of right hand, Contusion of finger of right hand Instructions: DI for Subungual Hematoma Activity Restrictions/Additional Instructions: You can take Tylenol/ibuprofen for any discomfort. There are no fractures noted on the x-rays. Return to the emergency department for any new or worsening symptoms. Referrals: Patricia Luis DO [Primary Care Provider] -
== END 2021-10-01 18:40 | disposition home or self-care (01) ==
PROVIDERS: Emergency Provider Emergency Medicine; PCP Family Medicine
DX: S60.111A Contusion of right thumb with damage to nail, initial encounter (principal); W23.0XXA Caught, crushed, jammed, or pinched between moving objects, initial encounter
CPT/HCPCS: 73140; 99283

== ENCOUNTER → 2022-08-31 08:02 | Outpatient (CLI) | payer OTHER, SELFPAY | PROVIDERS: PCP Family Medicine; Visit Provider Nurse Practitioner Family | DX: N39.0 Urinary tract infection, site not specified (principal) | CPT/HCPCS: 87077; 87086; 87186 ==

== ENCOUNTER 2023-04-21 15:30 | Emergency (ER) | payer OTHER, SELFPAY ==
[2023-04-21 15:45] VITALS: BP 127/68; PULSE 55; RESP 16; TEMP 36.2; O2SAT 100; BMI 32.5
--- NOTE | 2023-04-21 15:49 | DI.RAD.S_ITS ---
PROCEDURE: XR ANKLE LT MIN 3V INDICATIONS: rolled ankle, pain TECHNIQUE: 3 views of the ankle were acquired. COMPARISON: None. FINDINGS: Bones: No acute fractures or dislocations. Ankle mortise is normally aligned. No suspicious bony lesions. Soft tissues: No suspicious soft tissue calcifications. IMPRESSION: No acute osseous abnormality. If clinical suspicion and/or symptoms persist, additional imaging with repeat plain films, or advanced imaging (e.g. CT, MRI) may be helpful for further assessment. Approved by: Don Funes M.D. on 04/21/2023 at 16:11
--- NOTE | 2023-04-21 16:42 | ED_ITS ---
HPI - Extremity Injury (Lower) General Chief Complaint: Extremity Injury, Lower Stated Complaint: Left ankle injury Time Seen by Provider: 04/21/23 16:19 Source: patient Mode of arrival: Ambulatory History of Present Illness HPI Narrative: 19-year-old female nonsmoker without any chronic medical history presents with a chief complaint of left ankle pain and swelling after injuring it while running [place] the trails earlier. She states that she was running on uneven ground when she rolled her left ankle and now has pain with ambulation and increased bruising. Her pain is worse over the lateral malleolus. She denies any numbness, tingling or weakness. She denies any other lower leg pain, no knee or hip pain. She denies any numbness, tingling or weakness. Related Data Previous Rx's Medication Instructions Recorded phenazopyridine 200 mg tablet 200 mg PO TID 6 doses #6 tabs 08/31/22 (Pyridium) Allergies Allergy/AdvReac Type Severity Reaction Status Date / Time No Known Drug Allergies Allergy Verified 04/21/23 15:45 Review of Systems Review of Systems Narrative: GENERAL: Denies chills, fatigue, malaise, fever, sweats. HEENT: Denies sinus pain, ear pain, sore throat, difficulty swallowing, dizziness. RESPIRATORY: Denies dyspnea, cough, wheezing, hemoptysis, sputum. CARDIOVASCULAR: Denies chest pain, palpitations, orthopnea, edema, GASTROINTESTINAL: Denies nausea, vomiting, abdominal pain, diarrhea, constipation, melena. : Denies dysuria, frequency, incontinence, hematuria, urinary retention. MUSCULOSKELETAL: See HPI SKIN: Denies rash, skin lesions, or other NEUROLOGIC: Denies weakness, headache, numbness, change in speech, confusion, seizures, incoordination. PSYCHIATRIC: No concerning psychosocial issues. 12 point review of systems is negative except for those stated above Patient History Medical History Healthy adult Social History Smoking Status: Current some day smoker Smoking Status: Current some day smoker tobacco type: vaping alcohol intake frequency: holidays/special occasions only Substance Use Type: does not use Exam Narrative Exam Narrative: GENERAL: [27] year old patient appears stated age. Well-developed patient, in mild distress. HEAD: Atraumatic. Normocephalic. EYES: Pupils equal round and reactive. Extraocular motions intact. No scleral icterus. No injection or drainage. ENT: Nose without bleeding, purulent drainage. Throat without erythema, tonsillar hypertrophy or exudate. Airway patent. NECK: Trachea midline. Non tender CARDIOVASCULAR: Regular rate and rhythm without murmurs, gallops, or rubs. RESPIRATORY: Clear to auscultation. Breath sounds equal bilaterally. No wheezes, rales, or rhonchi. GASTROINTESTINAL: Abdomen soft, non-tender, nondistended. EXTREMITIES: Full but painful range of motion of the left ankle. There is min imal tenderness to palpation over the lateral malleolus with [id number] swelling and dependent ecchymosis. She has a palpable Achilles tendon which appears intact and without any bogginess. Calf squeeze results in plantar flexion. She has negative squeeze test for syndesmotic lesion. This is closed, isolated and neurovascularly intact BACK: Nontender without deformity or crepitance. No flank tenderness. NEURO: AOx3. SKIN: No rash or erythema of visible areas Initial Vital Signs Initial Vital Signs: Vital Signs Temperature 97.2 F L 04/21/23 15:45 Pulse Rate 55 L 04/21/23 15:45 Respiratory Rate 16 04/21/23 15:45 Blood Pressure 127/68 04/21/23 15:45 Pulse Oximetry 100 04/21/23 15:45 Oxygen Delivery Method Room Air 04/21/23 15:45 Course Orders Ordered: ED Orders 04/21/23 15:49 XR ankle LT min 3V Stat Vital Signs Vital signs: Vital Signs - 8 hr 04/21/23 15:45 Temperature 97.2 F L Pulse Rate 55 L Respiratory Rate 16 Blood Pressure 127/68 Pulse Oximetry 100 Oxygen Delivery Method Room Air MDM - Extremity Injury (Lower) MDM Narrative Medical decision making narrative: CC: 27F with left ankle pain Complicating co-morbidities: None known Data collected from: Patient Medical records reviewed: Prior notes reviewed in our EMR Differential considered, but not limited to: Ankle sprain versus fracture versus dislocation versus Achilles injury versus other Exam documented above, pertinent findings include: Pain, swelling and ecchymosis this is closed, isolated and neurovascularly intact, palpable Achilles tendon, plantar flexion with calf squeeze Imaging studies independently reviewed: No fracture or dislocation Discussion: Patient with reassuring history and physical exam, no signs of fracture or dislocation on exam or with imaging. There is moderate swelling and some ecchymosis suggesting soft tissue injury. This is closed, isolated and neurovascularly intact, exam highly suggestive against any Achilles injury. She has her own brace which is appropriate to wear. She is given return precautions which include but are not limited to worsening pain, numbness, tingling or the persistence of pain beyond 1 week. Disposition: see below, along with detailed discharge instructions that have been reviewed with patient as well as indications for ED re-evaluation and additional outpatient follow up Discharge Plan Departure Patient Disposition: Home Clinical Impression: Ankle sprain and strain Instructions: DI for Ankle Sprain Activity Restrictions/Additional Instructions: *You have been diagnosed with [left ankle sprain. As we discussed your history and physical exam are reassuring and there is no evidence of a fracture or dislocation. Furthermore, based on the exam your Achilles tendon is intact.] *What to do: *Please continue to take your regular medications as directed. [ ] New medication prescriptions sent to your pharmacy: [ ] [ ] New medication written as a paper prescription [ ] No new medications given *Please follow up with your primary care provider in 2-3 days, call for an appointment. Let them know you were seen in the Emergency Department and that we ask that you be seen in follow up. We will electronically transmit a record of today's note if your PCP is in our system *If you do not have a primary care provider please contact the [facility] Resource line at [phone]. They will ask some questions about your medical history and help get you set up with a doctor in the community. *Return to Emergency Department if you should have any new, worsening or concerning symptoms, such as [fever greater than 101 F, shaking chills, worsening pain, persistent vomiting or other bothersome symptoms] Prescriptions: No Action phenazopyridine [Pyridium] 200 mg tablet 200 mg PO TID 0 Days Qty: 6 0RF Referrals: Patricia Luis DO [Primary Care Provider] - Stand Alone Forms: Patient Portal/API
--- NOTE | 2023-04-21 16:50 | PC.NURSE ---
seen and assessed by Dr Coronel without RN involvement
== END 2023-04-21 16:51 | disposition home or self-care (01) ==
PROVIDERS: Emergency Provider Emergency Medicine; PCP Family Medicine
DX: S93.402A Sprain of unspecified ligament of left ankle, initial encounter (principal); S96.912A Strain of unspecified muscle and tendon at ankle and foot level, left foot, initial encounter; W18.30XA Fall on same level, unspecified, initial encounter
CPT/HCPCS: 73610; 99283